=== PATIENT | female | born 1990 | race American Indian/Alaskan Native ===

== ENCOUNTER 2019-05-09 20:23 | Outpatient (CLI) | payer MEDICAID ==
[2019-05-09 23:01] VITALS: BP 120/79
[2019-05-09 23:22] LABS: Bilirubin,Urine NEG (Negative); Blood,Urine NEG (Negative); Color,Urine Straw (Yellow); Protein,Urine <15 mg/dL mg/dL (Negative); Urobilinogen,Urine < 2.0 mg/dL (<2.0)
[2019-05-09 23:23] LABS: WBC,Urine < 1.0 /HPF (0.0-6.0)
== END 2019-05-09 23:35 | disposition home or self-care (01) ==
LOC: EDSTATUS 21:09 → TRG 21:15
PROVIDERS: ATTEND Obstetrics & Gynecology
DX: O99.89 Other specified diseases and conditions complicating pregnancy, childbirth and the puerperium (principal); M79.89 Other specified soft tissue disorders; Z3A.38 38 weeks gestation of pregnancy
CPT/HCPCS: 59025; 81001

== ENCOUNTER 2020-03-23 19:57 | Emergency (ER) | payer MEDICAID, OTHER ==
[2020-03-24] MEDS ORDERED: FLUCONAZOLE 100 MG TAB PO ONE (03:45)
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
[2020-03-24 04:58] VITALS: BP 124/72
== END 2020-03-24 04:45 | disposition home or self-care (01) ==
LOC: ED 19:57
DX: T24.111A Burn of first degree of right thigh, initial encounter (principal); L30.8 Other specified dermatitis; Z79.899 Other long term (current) drug therapy; X08.8XXA Exposure to other specified smoke, fire and flames, initial encounter; Y93.89 Activity, other specified; Y92.89 Other specified places as the place of occurrence of the external cause; Y99.8 Other external cause status
CPT/HCPCS: 99282

== ENCOUNTER 2021-01-22 19:26 | Emergency (ER) | payer OTHER ==
[2021-01-22 20:48] VITALS: BP 111/72
[2021-01-23] MEDS ORDERED: traMADol 50 MG TAB PO ONE (00:47)
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
== END 2021-01-23 01:30 | disposition home or self-care (01) ==
LOC: ED 19:26
DX: R51.9 Headache, unspecified (principal); Z79.899 Other long term (current) drug therapy; V49.49XA Driver injured in collision with other motor vehicles in traffic accident, initial encounter; Y93.89 Activity, other specified; Y92.410 Unspecified street and highway as the place of occurrence of the external cause; Y99.8 Other external cause status
CPT/HCPCS: 99282

== ENCOUNTER 2021-05-29 11:28 | Emergency (ER) | payer OTHER ==
[2021-05-29] MEDS ORDERED: METOCLOPRAMIDE 10 MG TAB PO ONE (11:46)
--- NOTE | 2021-05-29 11:49 | Emergency Department Report ---
ED General Adult HPI - General Chief complaint: Nausea/Vomiting/Diarrhea Stated complaint: DEHYDRATED, MAYBE , FATIGUE Time Seen by Provider: 05/29/21 11:41 Source: patient Mode of arrival: Ambulatory Limitations: No Limitations - History of Present Illness Initial comments: Patient is a 31-year-old female presents emergency room with complaints of nausea and vomiting that began a week ago. She states that she has a couple episodes a day. She is able to tolerate p.o. intake. Patient states that she had some lower abdominal discomfort yesterday. She states her last menstrual cycle was April 04, 2021, she states that she took positive urine test [id number]. She has not yet seen [facility]. She states that for her previous she went to [place]. She denies any fever, diarrhea, vaginal bleeding, abnormal vaginal discharge. Past medical history of anemia. No allergies to medications. /P: 4/A: 0 - Related Data Previous Rx's Medication Instructions Recorded Last Taken Type Mupirocin [Bactroban 2% OINT] 1 applic TP TID #1 tube 03/24/20 Unknown Rx diphenhydrAMINE [Benadryl CAP] 25 mg PO Q8HR PRN #30 capsule 03/24/20 Unknown Rx Acetaminophen/Codeine [Tylenol 1 tab PO Q6H PRN #12 tab 01/23/21 Unknown Rx /Codeine # 3 tab] Acetaminophen [Tylenol] 650 mg PO Q8HR PRN #20 capsule 05/29/21 Unknown Rx Metoclopramide [Reglan] 10 mg PO Q8HR PRN #12 tab 05/29/21 Unknown Rx Allergies Allergy/AdvReac Type Severity Reaction Status Date / Time No Known Allergies Allergy Verified 03/24/20 03:47 ED Review of Systems ROS: Stated complaint: DEHYDRATED, MAYBE , FATIGUE Other details as noted in HPI Comment: All other systems reviewed and negative ED Past Medical Hx - Past Medical History Hx Hypertension: No Hx Diabetes: No Hx Deep Vein Thrombosis: No Hx Renal Disease: No Hx Sickle Cell Disease: No Hx Seizures: No Hx Asthma: No Additional medical history: anemia - Surgical History Past Surgical History?: No - Social History Smoking Status: Never Smoker Substance Use Type: None - Medications Home Medications: Home Medications Medication Instructions Recorded Confirmed Last Taken Type Mupirocin [Bactroban 2% OINT] 1 applic TP TID #1 tube 03/24/20 Unknown Rx diphenhydrAMINE [Benadryl CAP] 25 mg PO Q8HR PRN #30 capsule 03/24/20 Unknown Rx Acetaminophen/Codeine [Tylenol 1 tab PO Q6H PRN #12 tab 01/23/21 Unknown Rx /Codeine # 3 tab] Acetaminophen [Tylenol] 650 mg PO Q8HR PRN #20 capsule 05/29/21 Unknown Rx Metoclopramide [Reglan] 10 mg PO Q8HR PRN #12 tab 05/29/21 Unknown Rx ED Physical Exam - General Limitations: No Limitations General appearance: alert, in no apparent distress - Head Head exam: Present: atraumatic, normocephalic - Eye Eye exam: Present: normal appearance - ENT ENT exam: Present: mucous membranes moist - Respiratory Respiratory exam: Present: normal lung sounds bilaterally. Absent: respiratory distress, wheezes, rales, rhonchi, stridor, chest wall tenderness, accessory muscle use, decreased breath sounds, prolonged expiratory - Cardiovascular Cardiovascular Exam: Present: regular rate, normal rhythm, normal heart sounds. Absent: systolic murmur, diastolic murmur, rubs, gallop - GI/Abdominal GI/Abdominal exam: Present: soft, normal bowel sounds. Absent: distended, tenderness, guarding, rebound, rigid - Neurological Exam Neurological exam: Present: alert, oriented X3 - Psychiatric Psychiatric exam: Present: normal affect, normal mood - Skin Skin exam: Present: warm, dry, intact ED Course Vital Signs 05/29/21 05/29/21 11:35 15:09 Temperature 97.7 F 98.3 F Pulse Rate 107 H 91 H Respiratory 18 18 Rate Blood Pressure 135/68 107/55 O2 Sat by Pulse 99 99 Oximetry ED Medical Decision Making - Lab Data Result diagrams: 05/29/21 11:56 05/29/21 11:56 Lab Results 05/29/21 05/29/21 05/29/21 Range/Units 11:56 11:56 11:56 WBC 7.8 (4.5-11.0) K/mm3 RBC 4.56 (3.65-5.03) M/mm3 Hgb 12.0 (10.1-14.3) gm/dl Hct 38.3 (30.3-42.9) % MCV 84 (79-97) fl MCH 26 L (28-32) pg MCHC 31 (30-34) % RDW 14.0 (13.2-15.2) % Plt Count 273 (140-440) K/mm3 Lymph % (Auto) 21.9 (13.4-35.0) % [place] % (Auto) 4.7 (0.0-7.3) % Eos % (Auto) 0.8 (0.0-4.3) % Baso % (Auto) 0.2 (0.0-1.8) % Lymph # (Auto) 1.7 (1.2-5.4) K/mm3 [place] # (Auto) 0.4 (0.0-0.8) K/mm3 Eos # (Auto) 0.1 (0.0-0.4) K/mm3 Baso # (Auto) 0.0 (0.0-0.1) K/mm3 Seg Neutrophils % 72.4 H (40.0-70.0) % Seg Neutrophils # 5.6 (1.8-7.7) K/mm3 Sodium 137 (137-145) mmol/L Potassium 3.9 (3.6-5.0) mmol/L Chloride 101.5 (98-107) mmol/L Carbon Dioxide 25 (22-30) mmol/L Anion Gap 14 mmol/L BUN 5 L (7-17) mg/dL Creatinine 0.6 (0.6-1.2) mg/dL Estimated GFR > 60 ml/min BUN/Creatinine Ratio 8 % Glucose 108 H (65-100) mg/dL Calcium 9.4 (8.4-10.2) mg/dL ALT 9 (7-56) units/L Alkaline Phosphatase 62 (35-129) units/L Total Protein 7.7 (6.3-8.2) g/dL Albumin 4.1 (3.9-5) g/dL Albumin/Globulin Ratio 1.1 % HCG, Quant 529153 H (0-4) mIU/mL Urine Color (Yellow) Urine Turbidity (Clear) Urine pH (5.0-7.0) Ur Specific [place] (1.003-1.030) Urine Protein (Negative) mg/dL Urine Glucose (UA) (Negative) mg/dL Urine Ketones (Negative) mg/dL Urine Blood (Negative) Urine Nitrite (Negative) Urine Bilirubin (Negative) Urine Urobilinogen (<2.0) mg/dL Ur Leukocyte Esterase (Negative) Urine WBC (Auto) (0.0-6.0) /HPF Urine RBC (Auto) (0.0-6.0) /HPF U Epithel Cells (Auto) (0-13.0) /HPF Urine Mucus /HPF 05/29/ Range/Units Unknown WBC (4.5-11.0) K/mm3 RBC (3.65-5.03) M/mm3 Hgb (10.1-14.3) gm/dl Hct (30.3-42.9) % MCV (79-97) fl MCH (28-32) pg MCHC (30-34) % RDW (13.2-15.2) % Plt Count (140-440) K/mm3 Lymph % (Auto) (13.4-35.0) % [place] % (Auto) (0.0-7.3) % Eos % (Auto) (0.0-4.3) % Baso % (Auto) (0.0-1.8) % Lymph # (Auto) (1.2-5.4) K/mm3 [place] # (Auto) (0.0-0.8) K/mm3 Eos # (Auto) (0.0-0.4) K/mm3 Baso # (Auto) (0.0-0.1) K/mm3 Seg Neutrophils % (40.0-70.0) % Seg Neutrophils # (1.8-7.7) K/mm3 Sodium (137-145) mmol/L Potassium (3.6-5.0) mmol/L Chloride (98-107) mmol/L Carbon Dioxide (22-30) mmol/L Anion Gap mmol/L BUN (7-17) mg/dL Creatinine (0.6-1.2) mg/dL Estimated GFR ml/min BUN/Creatinine Ratio % Glucose (65-100) mg/dL Calcium (8.4-10.2) mg/dL ALT (7-56) units/L Alkaline Phosphatase (35-129) units/L Total Protein (6.3-8.2) g/dL Albumin (3.9-5) g/dL Albumin/Globulin Ratio % HCG, Quant (0-4) mIU/mL Urine Color Yellow (Yellow) Urine Turbidity Clear (Clear) Urine pH 6.0 (5.0-7.0) Ur Specific [place] 1.016 (1.003-1.030) Urine Protein <15 mg/dl (Negative) mg/dL Urine Glucose (UA) 50 (Negative) mg/dL Urine Ketones Neg (Negative) mg/dL Urine Blood Neg (Negative) Urine Nitrite Neg (Negative) Urine Bilirubin Neg (Negative) Urine Urobilinogen < 2.0 (<2.0) mg/dL Ur Leukocyte Esterase Neg (Negative) Urine WBC (Auto) 5.0 (0.0-6.0) /HPF Urine RBC (Auto) 2.0 (0.0-6.0) /HPF U Epithel Cells (Auto) 3.0 (0-13.0) /HPF Urine Mucus 2+ /HPF Vital Signs 05/29/21 05/29/21 11:35 15:09 Temperature 97.7 F 98.3 F Pulse Rate 107 H 91 H Respiratory 18 18 Rate Blood Pressure 135/68 107/55 O2 Sat by Pulse 99 99 Oximetry - Radiology Data Radiology results: report reviewed Ordering Physician: LYLY ALMONTE Date of Service: 05/29/21 Procedure(s): US OB <= 14 weeks fetus Accession Number(s): [id number] cc: LYLY ALMONTE ULTRASOUND OBSTETRIC REASON FOR EXAM: , abd pain TECHNIQUE: Transabdominal and transvaginal ultrasound was performed to evaluate a first trimester . COMPARISON: None available. FINDINGS: FINDINGS: The pole, yolk sac, and gestational sac are normal in appearance. [place]-rump length: 16 mm. This corresponds with a gestational age of 8 weeks 0 days. heart rate: 163 bpm Perigestational hemorrhage: No evidence of perigestational hemorrhage on the provided images. MATERNAL FINDINGS: The uterus demonstrates an otherwise unremarkable sonographic appearance. The right ovary demonstrates a normal sonographic appearance. Adjacent 5.3 cm and 2.5 cm cysts within the left ovary. Normal left ovarian Doppler flow without evidence of torsion. Cul-de-sac: There is no free fluid. IMPRESSION: 1. Viable intrauterine . Gestational age is 8 weeks 0 days by ultrasound. Recommend clinical screening and ultrasound follow-up in the second trimester to screen for anomalies. 2. Left ovarian cysts, measuring up to 5.3 cm. No evidence of ovarian torsion. Signer Name: Guanaco Montiel MD Signed: 05/29/2021 2:24 PM Workstation Name: [id number] Transcribed By: SHANIKA Dictated By: GUANACO MONTIEL MD Electronically Authenticated By: GUANACO MONTIEL MD Signed Date/Time: 05/29/211423 DD/ 20 TD/TT: - Medical Decision Making Patient is a 31-year-old female presents emergency room with complaints of nausea and vomiting that began a week ago. She states that she has a couple episodes a day. She is able to tolerate p.o. intake. Patient states that she had some lower abdominal discomfort yesterday. She states her last menstrual cycle was April 04, 2021, she states that she took positive urine test [id number]. She has not yet seen [facility]. She states that for her previous she went to [place]. She denies any fever, diarrhea, vaginal bleeding, abnormal vaginal discharge. Past medical history of anemia. No allergies to medications. /P: 4/A: 0. Initial vitals with tachycardia which improved upon repeat. No abdominal tenderness on exam. Labs with very mild elevation in blood glucose at 108 and small amount of glucose in urine, discussed the importance of outpatient follow-up. hCG quant is [id number]. UA without evidence of UTI. OB ultrasound: 1. Viable intrauterine . Gestational age is 8 weeks 0 days by ultrasound. Recommend clinical screening and ultrasound follow-up in the second trimester to screen for anomalies. 2. Left ovarian cysts, measuring up to 5.3 cm. No evidence of ovarian torsion. Patient given p.o. Reglan on the emergency department was able to tolerate p.o. intake without difficulty and had no episodes of vomiting. Discussed all results with patient discussed the importance of outpatient follow-up. Advised patient Please take medication as prescribed. Please take a vitamin [id number]. Follow-up with [facility]. Return to emergency room for any new or worsening symptoms. Critical care attestation.: If time is entered above; I have spent that time in minutes in the direct care of this critically ill patient, excluding procedure time. ED Disposition Clinical Impression: Elevated random blood glucose level Nausea & vomiting Qualifiers: Vomiting type: unspecified Vomiting Intractability: non-intractable Qualified Code(s): R11.2 - Nausea with vomiting, unspecified Qualifiers: Weeks of gestation: 8 weeks Qualified Code(s): Z3A.08 - 8 weeks gestation of Ovarian cyst Qualifiers: Laterality: left Qualified Code(s): N83.202 - Unspecified ovarian cyst, left side Disposition: 01 HOME / SELF CARE / HOMELESS Is pt being admited?: No Does the pt Need Aspirin: No Condition: Stable Instructions: Abdominal Pain During , [id number], Ovarian Cyst Additional Instructions: Please take medication as prescribed. Please take a vitamin [id number]. Follow-up with [facility]. Return to emergency room for any new or worsening symptoms. Prescriptions: Metoclopramide [Reglan] 10 mg PO Q8HR PRN #12 tab PRN Reason: nausea/vomiting Acetaminophen [Tylenol] 650 mg PO Q8HR PRN #20 capsule PRN Reason: pain Referrals: PRIMARY CAREMD [Primary Care Provider] - 3-5 Days HOA PERALES MD [Staff Physician] - 3-5 Days Time of Disposition: 14:49 Print Language: SLOVENIAN
[2021-05-29 12:25] LABS: Basophils % (Auto) 0.2 % (0.0-1.8); Eosinophils # (Auto) 0.1 K/mm3 (0.0-0.4); Eosinophils % (Auto) 0.8 % (0.0-4.3); Hematocrit 38.3 % (30.3-42.9); Lymphocytes # (Auto) 1.7 K/mm3 (1.2-5.4); Lymphocytes % (Auto) 21.9 % (13.4-35.0); Mean Corpuscular HGB Conc 31 % (30-34); Mean Corpuscular Volume 84 fl (79-97); Monocytes # (Auto) 0.4 K/mm3 (0.0-0.8); Monocytes % (Auto) 4.7 % (0.0-7.3); Platelet Count 273 K/mm3 (140-440); Red Blood Count 4.56 M/mm3 (3.65-5.03)
[2021-05-29 12:39] LABS: Alanine Aminotransferase 9 units/L (7-56); Albumin 4.1 g/dL (3.9-5); Blood Urea Nitrogen 5 mg/dL (7-17); Calcium 9.4 mg/dL (8.4-10.2); Hemolysis Index 4
[2021-05-29 12:43] LABS: BUN/Creatinine Ratio 8
[2021-05-29 13:21] LABS: Bilirubin,Urine NEG (Negative); Blood,Urine NEG (Negative); Color,Urine Yellow (Yellow); Mucus,Urine 2+ /HPF; Protein,Urine <15 mg/dL mg/dL (Negative); Urobilinogen,Urine < 2.0 mg/dL (<2.0)
--- NOTE | 2021-05-29 14:29 | Ultrasound Report ---
ULTRASOUND OBSTETRIC REASON FOR EXAM: , abd pain TECHNIQUE: Transabdominal and transvaginal ultrasound was performed to evaluate a first trimester pre gnancy. COMPARISON: None available. FINDINGS: FINDINGS: The pole, yolk sac, and gestational sac are normal in appearance. [place]-rump length: 16 mm. This corresponds with a gestational age of 8 weeks 0 days. heart rate: 163 bpm Perigestational hemorrhage: No evidence of perigestational hemorrhage on the provided images. MATERNAL FINDINGS: The uterus demonstrates an otherwise unremarkable sonographic appearance. The right ovary demonstrates a normal sonographic appearance. Adjacent 5.3 cm and 2.5 cm cysts within the left ovary. Normal left ovarian Doppler flow without evid ence of torsion. Cul-de-sac: There is no free fluid. IMPRESSION: 1. Viable intrauterine . Gestational age is 8 weeks 0 days by ultrasound. Recommend clinica l screening and ultrasound follow-up in the second trimester to screen for anomalies. 2. Left ovarian cysts, measuring up to 5.3 cm. No evidence of ovarian torsion. Signer Name: Gil Soares MD Signed: 05/29/2021 2:24 PM Workstation Name: [id number]
[2021-05-29 15:10] VITALS: BP 107/55
== END 2021-05-29 15:11 | disposition home or self-care (01) ==
LOC: ED 11:28
DX: O21.8 Other vomiting complicating pregnancy (principal); O24.911 Unspecified diabetes mellitus in pregnancy, first trimester; O34.81 Maternal care for other abnormalities of pelvic organs, first trimester; N83.202 Unspecified ovarian cyst, left side; Z3A.08 8 weeks gestation of pregnancy; D64.9 Anemia, unspecified
CPT/HCPCS: 36415; 76801; 76817; 80053; 81001; 84702; 85025; 99284

== ENCOUNTER 2021-11-07 08:00 | Outpatient (CLI) | payer OTHER ==
--- NOTE | 2021-11-07 07:32 | Event Note ---
ED Screening Note ED Screening Note: vague history G5 no care states 30 w preg nikolas tony x 1 w no vag dc or bleeding recent fall- no complaints; she just adds this adds she feels dehydrated/ sore throat/congestion fundus 2 cm below xiphoid This initial assessment/diagnostic orders/clinical plan/treatment(s) is/are subject to change based on patients health status, clinical progression and re- assessment by fellow clinical providers in the ED. Further treatment and workup at subsequent clinical providers discretion. Patient/guardian urged not to elope from the ED as their condition may be serious if not clinically assessed and managed. Initial orders include: MD bill johnson
[2021-11-07 08:28] VITALS: BP 117/65
[2021-11-07] MEDS ORDERED: LACTATED RINGERS 500 ML IV ONE (09:00)
[2021-11-07 09:28] LABS: Hematocrit 28.3 % (30.3-42.9); Hemoglobin 9.1 gm/dl (10.1-14.3); Mean Corpuscular HGB Conc 32 % (30-34); Mean Corpuscular Volume 77 fl (79-97); Platelet Count 211 K/mm3 (140-440); Red Blood Count 3.65 M/mm3 (3.65-5.03)
[2021-11-07 09:51] LABS: Alanine Aminotransferase 19 units/L (7-56); Albumin 3.4 g/dL (3.9-5); Blood Urea Nitrogen 3 mg/dL (7-17); Calcium 8.6 mg/dL (8.4-10.2); Hemolysis Index 18
[2021-11-07 09:53] LABS: BUN/Creatinine Ratio 8
[2021-11-07] MEDS ORDERED: POTASSIUM CHLORIDE ER 20 MEQ TAB PO ONE (10:29)
--- NOTE | 2021-11-07 10:38 | Ultrasound Report ---
ULTRASOUND OBSTETRIC, limited INDICATION / CLINICAL INFORMATION: dates GRACIELA. Clinical Gestational Age (GA) in weeks, days: 30, 3 TECHNIQUE: Transabdominal. COMPARISON: 05/29/2021 FINDINGS: Single intrauterine . Biparietal Diameter = 7.54 cm = 30, 2 weeks, days Head Circumference = 28.87 cm = 31, 5 weeks, days Abdominal Circumference = 27.57 cm = 31, 4 weeks, days Femur Length = 6.24 cm = 32, 2 weeks, days Average Ultrasound Age (AUA) = 31, 3 weeks, days Heart Rate: 144 beats per minute. Estimated Weight in grams (if calculated): 1827 Estimated Weight Growth Percentile (if calculated): 81 Position: cephalic. Cervix: Not well visualized Amniotic Fluid Volume: normal Amniotic Fluid Index (GRACIELA) in cm (if calculated): 13.4. IMPRESSION: 1. Single, living intrauterine with estimated sonographic age of 31, 3 weeks, days. 2. No significant sonographic abnormality. ULTRASOUND BIOPHYSICAL PROFILE INDICATION / CLINICAL INFORMATION: dates GRACIELA. COMPARISON: None available. FINDINGS: BREATHING MOVEMENT = 2 GROSS BODY MOVEMENT = 2 TONE = 2 QUALITATIVE AMNIOTIC FLUID VOLUME = 2 TOTAL BIOPHYSICAL SCORE = 03/17 AMNIOTIC FLUID INDEX (cm) = 13.4 PRESENTATION: Cephalic. HEART RATE (beats per minute): 144 IMPRESSION: 1. biophysical profile = 03/17 Signer Name: Harris Chery MD Signed: 11/07/2021 10:34 AM Workstation Name: [id number]
== END 2021-11-07 11:52 | disposition home or self-care (01) ==
LOC: TRG 08:00 → EDSTATUS 08:02 → APU 08:03 → TRG 11:52
PROVIDERS: ATTEND Obstetrics & Gynecology
DX: O26.893 Other specified pregnancy related conditions, third trimester (principal); W19.XXXA Unspecified fall, initial encounter; Y93.89 Activity, other specified; Y92.89 Other specified places as the place of occurrence of the external cause; Y99.8 Other external cause status; Z3A.30 30 weeks gestation of pregnancy
CPT/HCPCS: 36415; 59025; 76816; 76819; 80053; 85027

== ENCOUNTER 2021-12-10 20:13 | Outpatient (CLI) | payer OTHER ==
[2021-12-10 20:43] VITALS: BP 111/64
[2021-12-10] MEDS ORDERED: LACTATED RINGERS 500 ML IV ONE (20:43)
== END 2021-12-10 20:30 | disposition home or self-care (01) ==
LOC: TRG 20:13 → APU 20:15 → TRG 20:30
PROVIDERS: ATTEND Obstetrics & Gynecology Gynecology
DX: Z34.93 Encounter for supervision of normal pregnancy, unspecified, third trimester (principal); Z3A.35 35 weeks gestation of pregnancy
CPT/HCPCS: 36415; 59025; 84112

== ENCOUNTER 2021-12-18 17:37 | Outpatient (CLI) | payer OTHER ==
[2021-12-18 18:17] VITALS: BP 120/71
[2021-12-18] MEDS ORDERED: LACTATED RINGERS 1,000 ML IV ONE (18:45)
== END 2021-12-18 19:02 | disposition home or self-care (01) ==
LOC: TRG 17:37 → APU 17:39 → TRG 19:02
PROVIDERS: ATTEND Obstetrics & Gynecology
DX: Z34.93 Encounter for supervision of normal pregnancy, unspecified, third trimester (principal); Z3A.36 36 weeks gestation of pregnancy
CPT/HCPCS: 59025

== ENCOUNTER 2021-12-22 23:41 | Observation (INO) | payer OTHER ==
--- NOTE | 2021-12-23 02:05 | Ultrasound Report ---
US OB BPP wo non-stress, US OB limited INDICATION / CLINICAL INFORMATION: bleeding/ no care. COMPARISON: 11/07/2021 FINDINGS: BREATHING MOVEMENT = 2 GROSS BODY MOVEMENT = 2 TONE = 2 QUALITATIVE AMNIOTIC FLUID VOLUME = 2 TOTAL BIOPHYSICAL SCORE = 8/8 AMNIOTIC FLUID INDEX (cm) = 7.7 PRESENTATION: Cephalic. HEART RATE (beats per minute): 145 Additional findings: The posterior placenta is reported as low lying, though this is incompletely sung ged at the cervical os. There is no placental lifting or separation. No retroplacental hematoma. IMPRESSION: 1. Single live intrauterine . biophysical profile = 8/8 2. Posterior placenta is reported as low lying though is incompletely imaged at the cervical os. No e vidence of placental abruption. Recommend repeat images of the placenta. 3. Amniotic fluid index measures 7.7 cm, which is at the lower limits of normal. Signer Name: Gil Soares MD Signed: 12/23/2021 2:01 AM Workstation Name: [id number]
--- NOTE | 2021-12-23 02:24 | History and Physical Report ---
History of Present Illness Date of examination: 12/23/21 Chief complaint: Bleeding and contractions History of present illness: This is a 31 yof who presented complaining of "gush" of blood from vagina followed by contractions that occurred last pm @~11p. She has not had any PNC, she's had sseveral US witht he first occurring at 10[facility] on 05/29/21 that places her KEVIN at 01/08/22 and EGA 37 5/7wga. On exma moderate dark blood on glove however cervix 3. US revealed low lying placenta. Will admit now for observation, wiil consider d/c home if no further bleeding Past History Past Medical History: no pertinent history Past Surgical History: no surgical history Social history: - Obstetrical History Expected Date of Delivery: 01/08/22 Actual Gestation: 37 Week(s) 5 Day(s) : 5 Para: 4 Hx # Term Pregnancies: 4 Number of Pregnancies: 0 Spontaneous Abortions: 0 Induced : 0 Number of Living Children: 4 #1 year: ,012 Method of Delivery: Vaginal Complications: none #2 year: ,015 Method of Delivery: Vaginal Complications: none #3 year: ,017 Method of Delivery: Vaginal Complications: none #4 year: ,019 Method of Delivery: Vaginal Complications: none Medications and Allergies Allergies Allergy/AdvReac Type Severity Reaction Status Date / Time No Known Allergies Allergy Verified 03/24/20 03:47 Home Medications Medication Instructions Recorded Confirmed Last Taken Type Mupirocin [Bactroban 2% OINT] 1 applic TP TID #1 tube 03/24/20 Unknown Rx diphenhydrAMINE [Benadryl CAP] 25 mg PO Q8HR PRN #30 capsule 03/24/20 Unknown Rx Acetaminophen/Codeine [Tylenol 1 tab PO Q6H PRN #12 tab 01/23/21 Unknown Rx /Codeine # 3 tab] Acetaminophen [Tylenol] 650 mg PO Q8HR PRN #20 capsule 05/29/21 Unknown Rx Metoclopramide [Reglan] 10 mg PO Q8HR PRN #12 tab 05/29/21 Unknown Rx Review of Systems All systems: negative Genitourinary: vaginal bleeding, contractions - Vital Signs Vital signs: Vital Signs Pulse Pulse Ox 125 H 97 12/23/21 00:20 12/23/21 00:20 Temp Pulse Resp BP Pulse Ox 98.7 F 117 H 96 12/23/21 00:23 12/23/21 02:07 12/23/21 02:07 - Physical Exam Breasts: Positive: deferred Cardiovascular: Regular rate Lungs: Positive: Normal air movement Abdomen: Positive: normal appearance, soft. Negative: tenderness Genitourinary (Female): Positive: normal external genitalia, normal perenium Vulva: both: normal Uterus: Positive: enlarged. Negative: tender Anus/Rectum: Positive: normal perianal skin Extremities: Positive: normal. Negative: tenderness, edema - Obstetrical FHR: category 1 Uterine Contraction Monitor Mode: External Cervical Dilatation: 1 Cervical Effacement Percentage: 30 station: -3 Uterine Contraction Pattern: Irregular Results Result Diagrams: 12/23/21 02:15 Abnormal lab results 12/23/21 Range/Units 01:22 Membranes Rupture Positive A (Negative) All other labs normal. Ultrasound: report reviewed Assessment and Plan - Patient Problems (1) 37 weeks gestation of Current Visit: Yes Status: Acute (2) Vaginal bleeding affecting early Current Visit: Yes Status: Acute Plan to address problem: Admit observe for further bleeding (3) No care in current Current Visit: Yes Status: Acute
[2021-12-23] MEDS ORDERED: LOPERAMIDE 2 MG CAP PO PRN (02:35)
[2021-12-23] MEDS ORDERED: ACETAMINOPHEN 325 MG TAB PO PRN ×2 (02:35→05:33)
[2021-12-23] MEDS ORDERED: ePHEDrine SULFATE 50 MG/1 ML INJ IV PRN (02:35)
[2021-12-23] MEDS ORDERED: BUTORPHANOL 2 MG/1 ML INJ IV PRN (02:35)
[2021-12-23 03:07] LABS: Hematocrit 25.5 % (30.3-42.9); Hemoglobin 7.9 gm/dl (10.1-14.3); Mean Corpuscular HGB Conc 31 % (30-34); Mean Corpuscular Volume 71 fl (79-97); Platelet Count 200 K/mm3 (140-440); Red Cell Distribution Width 17.8 % (13.2-15.2)
--- NOTE | 2021-12-23 03:47 | Event Note ---
Date: 12/23/21 Positive ROM plus, however +blood in vagina, normal GRACIELA.
[2021-12-23 04:40] LABS: Hepatitis C Virus Antibody Non-Reactive (NonReactive)
[2021-12-23] MEDS: LACTATED RINGERS 1,000 ML IV SCH ×3 (05:33→20:35)
[2021-12-23] MEDS ORDERED: AMPICILLIN/NS 2 GM/100 ML 2 GM/100 ML BAG IV ONE (06:35)
--- NOTE | 2021-12-23 08:11 | Progress Note ---
Assessment and Plan Pt sleeping; arousable to alert state by voice. Reports irregular contractions and feeling as though she is in labor. Pt requests SVE. SVE performed and pt tolerated well. No change in cervix. Small amount of vaginal bleeding noted. Discussed POC with pt for continued observation. Questions encouraged. No questions verbalized. Pt verbalizes understanding and agrees to POC. RN at bedside for exam and discussion. RN agrees to POC. - Patient Problems (1) 37 weeks gestation of Current Visit: Yes Status: Acute (2) No care in current Current Visit: Yes Status: Acute Plan to address problem: continue Ampicillin 1g q4h continuous efm and toco monitor for any changes in status and notify provider Subjective - Subjective Date of service: 12/23/21 Principal diagnosis: No Care, IUP @37wks, vaginal bleeding, Low lying placenta Patient reports: vaginal bleeding, movement normal, contractions, no new complaints, no loss of fluid Objective - Vital Signs Vital Signs: Vital Signs - 12hr 12/23/21 12/23/21 12/23/21 00:20 00:23 00:25 Temperature 98.7 F Pulse Rate 125 H 92 H Respiratory Rate Blood Pressure O2 Sat by Pulse 97 96 Oximetry O2 Sat by Pulse Oximetry [ Anterior Bilateral Throughout] 12/23/21 12/23/21 12/23/21 00:30 00:35 00:42 Temperature Pulse Rate 108 H 120 H 107 H Respiratory Rate Blood Pressure O2 Sat by Pulse 98 97 98 Oximetry O2 Sat by Pulse Oximetry [ Anterior Bilateral Throughout] 12/23/21 12/23/21 12/23/21 00:47 00:52 00:57 Temperature Pulse Rate 95 H 105 H 111 H Respiratory Rate Blood Pressure O2 Sat by Pulse 97 98 98 Oximetry O2 Sat by Pulse Oximetry [ Anterior Bilateral Throughout] 12/23/21 12/23/21 12/23/21 01:02 01:07 01:12 Temperature Pulse Rate 106 H 115 H 127 H Respiratory Rate Blood Pressure O2 Sat by Pulse 97 98 98 Oximetry O2 Sat by Pulse Oximetry [ Anterior Bilateral Throughout] 12/23/21 12/23/21 12/23/21 01:17 01:22 01:27 Temperature Pulse Rate 121 H 115 H 94 H Respiratory Rate Blood Pressure O2 Sat by Pulse 98 98 97 Oximetry O2 Sat by Pulse Oximetry [ Anterior Bilateral Throughout] 12/23/21 12/23/21 12/23/21 01:32 01:37 01:42 Temperature Pulse Rate 119 H 116 H 108 H Respiratory Rate Blood Pressure O2 Sat by Pulse 97 97 97 Oximetry O2 Sat by Pulse Oximetry [ Anterior Bilateral Throughout] 12/23/21 12/23/21 12/23/21 01:47 01:52 01:57 Temperature Pulse Rate 112 H 109 H 145 H Respiratory Rate Blood Pressure O2 Sat by Pulse 99 97 98 Oximetry O2 Sat by Pulse Oximetry [ Anterior Bilateral Throughout] 12/23/21 12/23/21 12/23/21 02:02 02:07 04:55 Temperature Pulse Rate 117 H 117 H 85 Respiratory Rate Blood Pressure 128/75 O2 Sat by Pulse 98 96 Oximetry O2 Sat by Pulse Oximetry [ Anterior Bilateral Throughout] 12/23/21 12/23/21 12/23/21 04:56 05:09 05:21 Temperature 98.2 F Pulse Rate 96 H Respiratory Rate Blood Pressure 126/74 O2 Sat by Pulse Oximetry O2 Sat by Pulse 97 Oximetry [ Anterior Bilateral Throughout] 12/23/21 12/23/21 12/23/21 05:25 05:30 05:35 Temperature Pulse Rate 101 H 96 H 91 H Respiratory Rate Blood Pressure O2 Sat by Pulse 99 99 98 Oximetry O2 Sat by Pulse Oximetry [ Anterior Bilateral Throughout] 12/23/21 12/23/21 12/23/21 05:40 05:45 05:50 Temperature Pulse Rate 88 97 H 101 H Respiratory Rate Blood Pressure O2 Sat by Pulse 98 98 99 Oximetry O2 Sat by Pulse Oximetry [ Anterior Bilateral Throughout] 12/23/21 12/23/21 12/23/21 05:55 06:00 06:05 Temperature Pulse Rate 104 H 114 H 123 H Respiratory Rate Blood Pressure O2 Sat by Pulse 99 100 99 Oximetry O2 Sat by Pulse Oximetry [ Anterior Bilateral Throughout] 12/23/21 12/23/21 12/23/21 06:10 06:15 06:20 Temperature Pulse Rate 111 H 91 H 83 Respiratory Rate Blood Pressure O2 Sat by Pulse 98 97 98 Oximetry O2 Sat by Pulse Oximetry [ Anterior Bilateral Throughout] 12/23/21 12/23/21 12/23/21 06:25 06:30 06:35 Temperature Pulse Rate 88 112 H 92 H Respiratory Rate Blood Pressure O2 Sat by Pulse 99 98 98 Oximetry O2 Sat by Pulse Oximetry [ Anterior Bilateral Throughout] 12/23/21 12/23/21 12/23/21 06:40 06:45 06:50 Temperature Pulse Rate 89 101 H 110 H Respiratory Rate Blood Pressure O2 Sat by Pulse 98 99 98 Oximetry O2 Sat by Pulse Oximetry [ Anterior Bilateral Throughout] 12/23/21 12/23/21 12/23/21 06:55 07:00 07:05 Temperature Pulse Rate 104 H 106 H 109 H Respiratory Rate Blood Pressure O2 Sat by Pulse 98 99 98 Oximetry O2 Sat by Pulse Oximetry [ Anterior Bilateral Throughout] 12/23/21 12/23/21 12/23/21 07:10 07:15 07:20 Temperature Pulse Rate 102 H 92 H 98 H Respiratory Rate Blood Pressure O2 Sat by Pulse 99 99 99 Oximetry O2 Sat by Pulse Oximetry [ Anterior Bilateral Throughout] 12/23/21 12/23/21 12/23/21 07:22 07:23 07:25 Temperature 98.5 F Pulse Rate 105 H 103 H Respiratory 18 Rate Blood Pressure 118/64 O2 Sat by Pulse 98 99 Oximetry O2 Sat by Pulse 98 Oximetry [ Anterior Bilateral Throughout] 12/23/21 12/23/21 12/23/21 07:30 07:35 07:40 Temperature Pulse Rate 94 H 109 H 107 H Respiratory Rate Blood Pressure O2 Sat by Pulse 99 98 99 Oximetry O2 Sat by Pulse Oximetry [ Anterior Bilateral Throughout] 12/23/21 12/23/21 12/23/21 07:45 07:50 07:55 Temperature Pulse Rate 96 H 105 H 106 H Respiratory Rate Blood Pressure O2 Sat by Pulse 98 98 98 Oximetry O2 Sat by Pulse Oximetry [ Anterior Bilateral Throughout] 12/23/21 12/23/21 08:00 08:05 Temperature Pulse Rate 104 H 116 H Respiratory Rate Blood Pressure O2 Sat by Pulse 98 98 Oximetry O2 Sat by Pulse Oximetry [ Anterior Bilateral Throughout] - Exam Breasts: deferred Lungs: Normal air movement Abdomen: Present: normal appearance, soft. Absent: distention, tenderness, guarding FHR: auscultation normal, category 1 Uterine Contraction Monitor Mode: External Cervical Dilatation: 2 Cervical Effacement Percentage: 50 station: -3 Uterine Contraction Pattern: Irregular Uterine Tone Measurement Phase: Resting Extremities: normal - Labs Labs: Abnormal Labs 12/23/21 12/23/21 01:22 02:15 RBC 3.60 L Hgb 7.9 L Hct 25.5 L MCV 71 L MCH 22 L RDW 17.8 H Membranes Rupture Positive A Laboratory Results - last 24 hr 12/23/21 12/23/21 12/23/21 01:22 02:15 02:15 WBC 7.8 RBC 3.60 L Hgb 7.9 L Hct 25.5 L MCV 71 L MCH 22 L MCHC 31 RDW 17.8 H Plt Count 200 Membranes Rupture Positive A Syphilis IgG/IgM Ab Nonreactive Hep Bs Antigen Hepatitis C Antibody HIV 1&2 Antibody Rapid HIV P24 Antigen Rubella IgG Antibody Blood Type Antibody Screen 12/23/21 12/23/21 12/23/21 02:15 02:15 02:15 WBC RBC Hgb Hct MCV MCH MCHC RDW Plt Count Membranes Rupture Syphilis IgG/IgM Ab Hep Bs Antigen Non-reactive Hepatitis C Antibody Non-reactive HIV 1&2 Antibody Rapid HIV P24 Antigen Rubella IgG Antibody Immune Blood Type O POSITIVE Antibody Screen Negative 12/23/21 02:15 WBC RBC Hgb Hct MCV MCH MCHC RDW Plt Count Membranes Rupture Syphilis IgG/IgM Ab Hep Bs Antigen Hepatitis C Antibody HIV 1&2 Antibody Rapid Non react HIV P24 Antigen Non react Rubella IgG Antibody Blood Type Antibody Screen - Results US- obstetric: report reviewed (BPP 03/17 GRACIELA 7.7cm, no signs of placental of abruption)
[2021-12-23] MEDS: AMPICILLIN/NS 1 GM/50 ML 1 GM/50 ML BAG IV SCH ×3 (11:08→18:35)
--- NOTE | 2021-12-23 17:34 | Event Note ---
Date: 12/23/21 Pt reports irregular contractions. Denies having any further vaginal bleeding today. Gentle SVE performed and grossly unchanged. Scant amount of bright red vaginal bleeding noted on glove. Precautions reviewed. Discussed plan to repeat ultrasound in am if undelivered. Dr. Jaffe aware.
[2021-12-24] MEDS: LACTATED RINGERS 1,000 ML IV SCH (04:31)
[2021-12-24 07:06] VITALS: BP 99/58
--- NOTE | 2021-12-24 09:23 | Discharge Summary ---
Providers - Providers Date of Admission: 12/23/21 02:36 Date of discharge: 12/24/21 (desires to go home) Attending physician: DELFINA ABARCA Primary care physician: DELFINA ABARCA Hospitalization Reason for admission: no care, vag bleeding Condition: Good Pertinent studies: Stable H&H Hospital course: observation Disposition: 01 HOME / SELF CARE / HOMELESS Final Discharge Diagnosis (Prints w/discharge instructions): no care, vaginal bleeding Time spent for discharge: 25 - Discharge Diagnoses (1) 37 weeks gestation of Status: Acute (2) No care in current Status: Acute Qualifiers: Trimester: third trimester Qualified Code(s): O09.33 - Supervision of with insufficient care, third trimester Core Measure Documentation - Palliative Care Palliative Care/ Comfort Measures: Not Applicable - Core Measures Any of the following diagnoses?: none Exam - Constitutional Vitals: Temp Pulse Resp BP Pulse Ox 97.8 F 100 H 18 99/58 100 12/24/21 08:11 12/24/21 08:34 12/24/21 04:31 12/24/21 07:05 12/24/21 08:34 General appearance: Present: no acute distress, well-nourished - EENT Eyes: Present: PERRL ENT: hearing intact, clear oral mucosa - Neck Neck: Present: supple, normal ROM - Respiratory Respiratory effort: normal Respiratory: bilateral: CTA - Cardiovascular Rhythm: regular Heart Sounds: Absent: rub, click - Abdominal General gastrointestinal: Present: soft, non-tender, non-distended, normal bowel sounds Female genitourinary: Present: normal - Integumentary Integumentary: Present: clear, warm, dry - Musculoskeletal Musculoskeletal: gait normal, strength equal bilaterally - Psychiatric Psychiatric: appropriate mood/affect, intact judgment & insight - Neurologic Neurologic: CNII-XII intact, moves all extremities - Additional findings Additional findings: pt w/o complaints, denies feeling ctx. no vaginal bleeding. pt to be d/c'd home with f/u in our office to establish care VIKKI. Plan Activity: other (pelvic rest - no sex) Diet: regular Special Instructions: no heavy lifting Follow up with: DELFINA ABARCA MD [Primary Care Provider] - 7 Days (Please call [phone] to schedule a visit to establish care this week.)
--- NOTE | 2021-12-24 09:57 | Ultrasound Report ---
ULTRASOUND OBSTETRIC LIMITED INDICATION / CLINICAL INFORMATION: placenta. TECHNIQUE: Transabdominal ultrasound imaging. COMPARISON: Yesterday FINDINGS: HEART RATE (beats per minute): 129 AMNIOTIC FLUID INDEX (cm) = not measured PRESENTATION: Cephalic. ADDITIONAL FINDINGS: The placenta is right lateral, grade 1 and free of the internal cervical os. The cervix is closed and measures 4.8 cm in length. IMPRESSION: No acute abnormality. Placenta is right lateral, grade 1. Signer Name: Maciej Escobar Jr, MD Signed: 12/24/2021 9:52 AM Workstation Name: [id number]
== END 2021-12-24 09:45 | disposition home or self-care (01) ==
LOC: TRG 23:41 → APU 23:43 → TRG 12-23 02:35 → LD 12-23 02:36 → INTOOBSV 12-23 02:36 → LD 12-23 03:45
PROVIDERS: ADMIT Obstetrics & Gynecology; ATTEND Obstetrics & Gynecology
DX: O46.93 Antepartum hemorrhage, unspecified, third trimester (principal); Z20.822 Contact with and (suspected) exposure to COVID-19; O62.9 Abnormality of forces of labor, unspecified; Z3A.37 37 weeks gestation of pregnancy
CPT/HCPCS: 36415; 59025; 76815; 76819; 84112; 85027; 86592; 86706; 86762; 86803; 86850; 86900; 86901; 87806; 96365; 96366; G0378; J0290; J7120; U0003